=== PATIENT | male | born 1975 | race Caucasian/White ===

== ENCOUNTER 2017-06-10 11:34 | Day surgery (SDC) | payer BC ==
[~2017-06-10 11:34] MED LIST: Buffered Lidocaine 0.9% SYRIN* 5 ML/SYR SYRINGE INTRADERM ONE; Dexamethasone TAB* 4 MG PO ONE; Sodium Citrate/Citric Acid* 15 ML UDC PO ONE; celeCOXIB CAP* 200 MG PO ONE
[2017-06-10] MEDS ORDERED: celeCOXIB CAP* 100 MG ONE (12:11)
[2017-06-10] MEDS ORDERED: ceFAZolin 2 GM PREMIX (*) 2 GM/50 ML BAG IVPB ONE (12:12)
[2017-06-10] MEDS ORDERED: Sodium Citrate/Citric Acid* 15 ML UDC ONE ×2 (12:12)
[2017-06-10] MEDS ORDERED: Dexamethasone TAB* 4 MG ONE (12:12)
[2017-06-10] MEDS ORDERED: Bupivacaine 0.25% SDV* 30 ML ONE (15:11)
[2017-06-10] MEDS ORDERED: Lidocaine 1% MPF wEPI 200,000* 30 ML SDV ONE (15:11)
[2017-06-10] MEDS ORDERED: fentaNYL* 50 MCG/ML 2 ML VIAL (100 MCG VIAL) ONE (15:39)
[2017-06-10] MEDS ORDERED: Midazolam* 1 MG/ML 2 ML VIAL (2 MG) ONE ×2 (15:44→16:01)
[2017-06-10] MEDS ORDERED: Propofol* 10 MG/ML 20 ML BTL IV PUSH ONE (15:47)
[2017-06-10] MEDS ORDERED: fentaNYL* 50 MCG/ML 2 ML VIAL (100 MCG VIAL) IV PRN (16:20)
[2017-06-10] MEDS ORDERED: Naloxone* 0.4 MG/ML 1 ML VIAL IV PRN (16:20)
[2017-06-10] MEDS ORDERED: Ketorolac INJ* 30 MG/ML 1 ML VIAL IV PRN (16:20)
--- NOTE | 2017-06-10 16:29 | BRIEFOPN ---
Brief Operative Note - Surgery Procedures: OPERATIVE REPORT PRE-OP: Umbilical hernia POST-OP: Same PROCEDURE: open repair with mesh of umbilical hernia SURGEON: MD Paulo ANESTHESIA:Local with MAC converted to General with Dr. Smith ASST: INDERJIT Monique IVF:min EBL: min SPECIMEN: none DRAIN: none WOUND CLASS: One COMPLICATIONS: none TO PACU
[2017-06-10 17:58] VITALS: BP 135/77
--- NOTE | 2017-06-11 16:03 | OP ---
DATE OF OPERATION: 06/10/17 - [facility] DATE OF : 75 SURGEON: Donald Bates MD DIAPHRAGM BUILDER: INDERJIT Oquendo ANESTHESIOLOGIST: Paramjit Smith MD ANESTHESIA: Monitored anesthesia care with conversion to local anesthetic. PRE-OP DIAGNOSIS: Umbilical hernia. POST-OP DIAGNOSIS: Umbilical hernia. OPERATIVE PROCEDURE: Open repair of umbilical hernia with a Bard 1.7-inch dual mesh. ESTIMATED BLOOD LOSS: Minimal. SPECIMENS: None. COMPLICATIONS: None. WOUND CLASSIFICATION: I. DESCRIPTION OF PROCEDURE: Written informed consent was obtained, the abdomen was marked with indelible ink, and preoperative antibiotics were administered. The patient was taken to the operating room and placed in the supine position. Sequential compression devices were placed in the lower extremities. Anesthesia was administered and the abdomen was prepped and draped in the usual sterile fashion. Time-out verification was completed. 1% lidocaine with 0.25% Marcaine was then infiltrated extensively around the umbilicus and a semicircle incision was made inferior to the umbilicus and carried down through the midline fascia. The umbilical skin and stalk was then excised off the overlying protuberant fat and the fascial defect was identified. This appeared to be only contained fat and the fascial defect was only about 1.5 cm in diameter. I did not enter the peritoneal cavity. The preperitoneal space was developed using a combination of blunt dissection and some cautery. The patient was young and healthy and had a job consistent with quite a bit of heavy lifting; it was decided to proceed to place mesh for more durable repair. A 1.7-inch Bard mesh was then placed into the preperitoneal space beneath the fascia and sutured into position with two horizontal 0 Vicryl sutures that secured the straps of the mesh to the underside of the fascia. The [place] fascia was then closed with interrupted 0 Polysorb suture. Hemostasis was assured. The umbilical skin was sutured down to the fascia with single 3-0 Polysorb suture. The wound was then closed in layers with 3-0 and 4- 0 Polysorb suture. Steri-Strips and sterile dressings were applied. The patient tolerated the procedure well and was taken to the recovery room in stable condition. [id number]/[facility] #: [id number] [facility]
== END 2017-06-10 17:37 | disposition home or self-care (01) ==
LOC: OR 11:34
PROVIDERS: ATTEND Surgery
DX: K42.9 Umbilical hernia without obstruction or gangrene (principal); Z72.0 Tobacco use
CPT/HCPCS: A9270-GY; C1781; J0690; J2001; J2250; J2704; J3010; J8540